=== PATIENT | female | born 1965 | race Hispanic/Latino ===

== ENCOUNTER 2021-05-15 10:13 | Outpatient (CLI) | payer BC ==
--- NOTE | 2021-05-15 11:27 | Fluoroscopy Report ---
BARIUM SWALLOW Indication: DYSPHAGIA. Technique: Single and double contrast barium technique utilized to evaluate the esophagus. FINDINGS: To begin the exam, swallowing was evaluated in the lateral position under direct fluorosco py. Swallowing was normal. No mucosal irregularity, mass, mass effect, or critical stenosis. There were no abnormal tertiary c ontractions as seen with dysmotility. No gastroesophageal reflux. The patient was able to pass a paty um tablet without difficulty. IMPRESSION: Unremarkable exam. Fluoroscopic time: 1.5 minutes Number of fluoroscopic images: 33 Signer Name: Sean Wise Jr, MD Signed: 05/15/2021 11:23 AM Workstation Name: [id number]
== END 2021-05-15 10:14 | disposition home or self-care (01) ==
LOC: FLUORO 10:13
PROVIDERS: ATTEND Otolaryngology
DX: R13.10 Dysphagia, unspecified (principal)
CPT/HCPCS: 74220